=== PATIENT | male | born 1960 | race Caucasian/White ===

== ENCOUNTER 2021-07-14 08:41 | Day surgery (SDC) | payer BC ==
[2021-07-09 13:18] VITALS: BMI 22.3
[2021-07-14 09:04] VITALS: TEMP 97.7
[2021-07-14] MEDS ORDERED: LACTATED RINGERS 1,000 ML IV ONE (09:11)
[2021-07-14] MEDS ORDERED: PROPOFOL 10 MG/ML 20 ML VIAL IV ONE (10:08)
--- NOTE | 2021-07-14 10:12 | P.GSHP ---
History of Present Illness H&P Date: 07/14/21 Chief Complaint: Colon cancer screening Patient is here today for colonoscopy. He has not had 1 previously. No bowel complaints. No family history of colon cancer. Past Medical History Past Medical History: GERD/Reflux Additional Past Medical History / Comment(s): MIGRAINE HEADACHES History of Any Multi-Drug Resistant Organisms: None Reported Additional Past Surgical History / Comment(s): CYST REMOVED FROM LOWER LEFT EYELID, COMPLETE BLOOD TRANSFUSION AT Past Anesthesia/Blood Transfusion Reactions: No Reported Reaction Smoking Status: Former smoker - Past Family History Mother Family Medical History: No Reported History Medications and Allergies Home Medications Medication Instructions Recorded Confirmed Type Ascorbic Acid [Vitamin C] 500 mg PO DAILY 07/09/21 07/09/21 History Biotin Unknown Dose 1 tab PO DAILY 07/09/21 History Cetirizine HCl [Zyrtec] 10 mg PO DAILY 07/09/21 07/09/21 History Esomeprazole Magnesium [NexIUM] 20 mg PO BID 07/09/21 07/09/21 History Fluticasone Nasal [place] [Flonase 1 spray EA NOSTRIL BID 07/09/21 07/09/21 History Nasal [place]] Multivitamins, Thera [Multivitamin 1 tab PO DAILY 07/09/21 07/09/21 History (formulary)] Allergies Allergy/AdvReac Type Severity Reaction Status Date / Time No Known Allergies Allergy Verified 07/09/21 12:43 Surgical - Exam Vital Signs Temp Pulse Resp BP Pulse Ox 97.7 F 78 18 142/78 98 07/14/21 09:04 07/14/21 09:04 07/14/21 09:04 07/14/21 09:04 07/14/21 09:04 Physical exam: General: Well-developed, well-nourished HEENT: Normocephalic, sclerae nonicteric Abdomen: Nontender, nondistended Extremities: No edema Neuro: Alert and oriented Assessment and Plan (1) Colon cancer screening Narrative/Plan: Will proceed with colonoscopy Current Visit: Yes Status: Acute Code(s): Z12.11 - ENCOUNTER FOR SCREENING FOR MALIGNANT NEOPLASM OF COLON SNOMED Code(s): 435267755
--- NOTE | 2021-07-14 10:22 | P.PCN ---
Date of Procedure: 07/14/21 Procedure(s) Performed: PREOPERATIVE DIAGNOSIS: Colon cancer screening POSTOPERATIVE DIAGNOSIS: Normal exam PROCEDURE: Colonoscopy ANESTHESIA: MAC SURGEON: Dawood Lux M.D. SPECIMENS: None ENDOSCOPIC PROCEDURE: The patient was placed on the endoscopy table in the left decubitus position. The Olympus colonoscope was inserted into the anus and passed under direct visualization to the base of the cecum. The appendiceal orifice was visualized. From that point the scope was slowly withdrawn inspecti ng all surfaces carefully. There were no neoplastic inflammatory or polypoid lesions throughout the cecum, ascending, transverse, descending, sigmoid and rectum. There was no visible diverticulosis noted. Digital rectal examination was normal. The patient was taken to the recovery room in stable condition per anesthesia guidelines. RECOMMENDATIONS: Resume diet. Follow-up colonoscopy 10 years.
[2021-07-14 10:44] VITALS: BP 121/78; PULSE 67; RESP 18
== END 2021-07-14 11:17 | disposition home or self-care (01) ==
LOC: ORWHC2ENDO 08:41
PROVIDERS: ATTEND Surgery
DX: Z12.11 Encounter for screening for malignant neoplasm of colon (principal); K21.9 Gastro-esophageal reflux disease without esophagitis; G43.909 Migraine, unspecified, not intractable, without status migrainosus; Z87.891 Personal history of nicotine dependence; Z79.899 Other long term (current) drug therapy
CPT/HCPCS: J2704; G0121